=== PATIENT | female | born 1970 | race Caucasian/White ===

== ENCOUNTER 2017-06-27 08:25 | Outpatient (CLI) | payer OTHER ==
--- NOTE | 2017-06-27 10:35 | RAD ---
PA AND LATERAL CHEST XRAY: DATE: 06/27/17. HISTORY: Acute right-sided thoracic pain. The patient has pain behind the right shoulder blade for 2 weeks. FINDINGS: Cardiac silhouette and pulmonary vasculature are within normal limits. The lungs are clear. Minimal degenerative change is seen in the spine. IMPRESSION: No acute cardiopulmonary process. POS: [id number]
== END 2017-06-27 08:26 | disposition home or self-care (01) ==
LOC: SCSRAD 08:25
PROVIDERS: ATTEND Family Medicine
DX: M54.6 Pain in thoracic spine (principal)
CPT/HCPCS: 71046